=== PATIENT | male | born 1970 | race Caucasian/White ===

== ENCOUNTER → 2019-09-07 12:07 | Outpatient (CLI) | payer BC, SELFPAY ==
--- NOTE | 2019-09-07 | XR_ITS ---
PROCEDURE: XR KNEE RT 3V CLINICAL INDICATION: ABNORMALITY GAIT COMPARISON: No exams were available for comparison FINDINGS: No fracture or dislocation. No lytic or blastic change. There is normal mineralization. The joint spaces are well-preserved. No significant degenerative/arthritic changes. No erosive changes evident. Other findings:Incidental note made of ununited ossification center at the tibial tuberosity. There is a faint calcific density at the popliteal region nonspecific IMPRESSION: No acute findings. Dictated by: Peng Lindo MD 09/07/2019 13:48 Electronically signed by Peng Lindo MD in [facility] 09/07/2019 13:48
--- NOTE | 2019-09-07 | XR_ITS ---
PROCEDURE: XR ANKLE RT MIN 3V CLINICAL INDICATION: ABNORMAL GAIT COMPARISON: No exams were available for comparison FINDINGS: No fracture or dislocation. No lytic or blastic change. There is normal mineralization. The joint spaces are well-preserved. No significant degenerative/arthritic changes. No erosive changes evident. Other findings:Small metallic fragments are present along the anterior aspect of the distal tibia within the soft tissues IMPRESSION: No acute bony finding. Small metallic fragments along the soft tissues of the anterior distal tibia Dictated by: Peng Lindo MD 09/07/2019 13:45 Electronically signed by Peng Lindo MD in [facility] 09/07/2019 13:45
--- NOTE | 2019-09-07 | XR_ITS ---
PROCEDURE: XR LUMBAR SPINE MIN 4V CLINICAL INDICATION: Inability to control right lower extremity COMPARISON: No exams were available for comparison FINDINGS: There is normal alignment. There is mild levoscoliosis with degenerative disc disease at L2-L3. No fracture or dislocation. No lytic or blastic change. Mild degenerative disc disease also at L3-L4 and L5-S1. Other findings:None. IMPRESSION: Levoscoliosis with degenerative disc disease at L2-L3 L3-L4 and L5-S1 Dictated by: Peng Lindo MD 09/07/2019 13:12 Electronically signed by Peng Lindo MD in [facility] 09/07/2019 13:12
--- NOTE | 2019-09-07 | XR_ITS ---
PROCEDURE: XR HIP RT 2-3V W/PELVIS CLINICAL INDICATION: ABNORMAL GAIT COMPARISON: No exams were available for comparison FINDINGS: No fracture or dislocation. No lytic or blastic change. There is normal mineralization. The joint spaces are well-preserved. No significant degenerative/arthritic changes. No erosive changes evident. Other findings:There is suggestion a track within the left femoral neck extending to the subtrochanteric region which may be seen with prior core decompression. Please correlate clinically. IMPRESSION: Negative right hip. Suspect prior left femoral core decompression versus overlying artifact Dictated by: Peng Lindo MD 09/07/2019 13:35 Electronically signed by Peng Lindo MD in [facility] 09/07/2019 13:35
== END ==
PROVIDERS: PCP Nurse Practitioner Family; Visit Provider Nurse Practitioner Family
DX: R26.9 Unspecified abnormalities of gait and mobility (principal); R29.898 Other symptoms and signs involving the musculoskeletal system
CPT/HCPCS: 72110; 73502; 73562; 73610

== ENCOUNTER → 2020-07-16 12:31 | Outpatient (CLI) | payer BC, SELFPAY ==
--- NOTE | 2020-07-16 12:42 | XR_ITS ---
PROCEDURE: XR RIBS LT MIN 3V W CXR1V CLINICAL INDICATION: LT RIB PAIN Injury with pain COMPARISON: No exams were available for comparison FINDINGS: Frontal view of the chest shows no acute finding. There is mild thoracolumbar scoliosis convex left. No fracture or dislocation. No lytic or blastic change. IMPRESSION: No acute findings. Dictated by: Peng Lindo MD 07/16/2020 12:59 Peng Lindo MD in [facility] 07/16/2020 12:59
== END ==
PROVIDERS: PCP Nurse Practitioner Family; Visit Provider Nurse Practitioner Family
DX: R07.81 Pleurodynia (principal)
CPT/HCPCS: 71101